=== PATIENT | male | born 1980 | race African-American/Black ===

== ENCOUNTER 2018-10-10 17:51 | Emergency (ER) | payer SELFPAY ==
[~2018-10-10] VITALS: Ht 182.9 cm; Wt 90.0 kg
[~2018-10-10 17:51] MED LIST: NO HOME MEDS; PERCOCET 5/325M1 TAB OR
[2018-10-10 19:02] VITALS: BP 154/84
== END 2018-10-10 19:08 | disposition home or self-care (01) | DRG 563 ==
LOC: ED 17:51
DX: S46.912A Strain of unspecified muscle, fascia and tendon at shoulder and upper arm level, left arm, initial encounter (principal); F17.200 Nicotine dependence, unspecified, uncomplicated; X58.XXXA Exposure to other specified factors, initial encounter